=== PATIENT | male | born 1935 | race Caucasian/White ===

== ENCOUNTER 2018-05-05 13:49 | Emergency (ER) | payer OTHER, MEDICARE ==
--- NOTE | 2018-05-05 15:00 | ER Document Report ---
ED Extremity Problem, Lower - General Chief Complaint: Knee Pain Stated Complaint: KNEE PAIN Time Seen by Provider: 05/05/18 14:44 [facility]: [facility] [[facility]] - Follow up as needed Mode of Arrival: Wheelchair Information source: Patient Notes: 82-year-old male presents to ED for complaint of left knee pain since Saturday. He states he was trying to get up from the chair when he heard a very loud crack that can be heard throughout the house. He states he had a lot of pain in this knee since then. He states he thought he could just get over it but the pain has continued. says he hobbles around because of the pain. Patient is alert oriented respirations regular and unlabored speaking in full sentences patient is able to stand on the leg but with pain to the knee. TRAVEL OUTSIDE OF THE [place] IN LAST 30 DAYS: No - HPI Patient complains to provider of: Injury, Pain - Left, Swelling Location: Knee Occurred: Other - Saturday Where: Home, Indoors Onset/Duration: Persistent, Better Severity: Severe Pain Level: 5 Context: Twisted Recent injury: Possibly Associated symptoms: Grant a crack Exacerbated by: Hanging down, Movement, Walking Relieved by: Nothing - Related Data Allergies/Adverse Reactions: No Known Allergies Allergy (Verified 05/05/18 13:56) Past Medical History - General Information source: Patient, Relative - - Social History Smoking Status: Former Smoker Cigarette use (# per day): No Frequency of alcohol use: None Drug Abuse: None Lives with: Family Family History: Reviewed & Not Pertinent Patient has suicidal ideation: No Patient has homicidal ideation: No - Past Medical History Cardiac Medical History: Reports: Hx Atrial Fibrillation, Hx Congestive Heart Failure, Hx Coronary Artery Disease, Hx Hypercholesterolemia, Hx Hypertension Pulmonary Medical History: Reports: Hx COPD, Hx Pneumonia EENT Medical History: Reports: None Neurological Medical History: Reports: None Endocrine Medical History: Reports: None Renal/ Medical History: Reports: None Malignancy Medical History: Reports None GI Medical History: Reports: Hx Gastritis, Hx Gastroesophageal Reflux Disease Musculoskeletal Medical History: Reports Hx Arthritis, Reports Hx Musculoskeletal Deformity, Reports Hx Musculoskeletal Trauma Skin Medical History: Reports None Psychiatric Medical History: Reports: None Traumatic Medical History: Reports: None Infectious Medical History: Reports: None Past Surgical History: Reports: Hx Cardiac Catheterization, Hx Coronary Artery Bypass Graft, Hx Coronary Stent, Hx Pacemaker - Immunizations Immunizations up to date: Yes Hx Pneumococcal Vaccination: 03/11/05 Review of Systems - Review of Systems Constitutional: No symptoms reported EENT: No symptoms reported Cardiovascular: No symptoms reported Respiratory: No symptoms reported Gastrointestinal: No symptoms reported Genitourinary: No symptoms reported Male Genitourinary: No symptoms reported Musculoskeletal: Joint pain - left knee, Joint swelling Skin: No symptoms reported Hematologic/Lymphatic: No symptoms reported Neurological/Psychological: No symptoms reported -: Yes All other systems reviewed and negative Physical Exam - Vital signs Vitals: Temp Pulse Resp BP Pulse Ox 98.5 F 60 18 115/69 98 05/05/18 14:07 05/05/18 14:07 05/05/18 14:07 05/05/18 14:07 05/05/18 14:07 Interpretation: Normal - General General appearance: Appears well, Alert - HEENT Head: Normocephalic, Atraumatic Eyes: Normal Pupils: PERRL - Respiratory Respiratory status: No respiratory distress Chest status: Nontender Breath sounds: Normal Chest palpation: Normal - Cardiovascular Rhythm: Regular Heart sounds: Normal auscultation Murmur: No - Abdominal Inspection: Normal Distension: No distension Bowel sounds: Normal Tenderness: Nontender Organomegaly: No organomegaly - Back Back: Normal, Nontender - Extremities General upper extremity: Normal inspection, Nontender, Normal color, Normal ROM, Normal temperature General lower extremity: Normal color, Normal temperature, Normal weight bearing. No: Renu's sign Knee: Tender, Pain with ROM, Patellar tendon intact, Tender joint line. No: Abrasion, Deformity, Dislocation, Drawer's test instability, Ecchymosis, Instability, Joint effusion, Laceration, Laxity with valgus stress, Laxity with varus stress, Popliteal fossa tender, Unable to bear weight - Neurological Neuro grossly intact: Yes Cognition: Normal Orientation: AAOx4 Charlene Coma Scale Eye Opening: Spontaneous [place] Coma Scale Verbal: Oriented Charlene Coma Scale Motor: Obeys Commands [place] Coma Scale Total: 15 Speech: Normal Motor strength normal: LUE, RUE, LLE, RLE Sensory: Normal - Psychological Associated symptoms: Normal affect, Normal mood - Skin Skin Temperature: Warm Skin Moisture: Dry Skin Color: Normal Course - Re-evaluation Re-evalutation: 05/05/18 21:[address] Becker before discharge and patient. I reviewed the exam history and x-rays with Dr. Becker. She should be sure to have compression elevation and ice orders given to the patient. Patient has a compression brace on his knee at this time he is able to walk on his knee and a written report of the x- rays given to patient to follow-up with his primary doctor and orthopedics. Patient was discharged home. - Vital Signs Vital signs: Temp Pulse Resp BP Pulse Ox 98.3 F 59 L 22 H 128/70 H 96 05/05/18 16:15 05/05/18 16:15 05/05/18 16:15 05/05/18 16:15 05/05/18 16:15 - Diagnostic Test Radiology reviewed: Image reviewed, Reports reviewed Discharge - Discharge Clinical Impression: Left knee pain Qualifiers: Chronicity: unspecified Qualified Code(s): M25.562 - Pain in left knee Condition: Stable Disposition: HOME, SELF-CARE Additional Instructions: You were seen today for pain to your left knee. Your knee x-ray shows multiple chronic problems but no fractures or dislocations Knee Effusion You have a fluid collection in the knee joint, called an effusion. This fluid build up can occur from irritation of the synovial membrane lining the knee joint or from a more serious injury to the knee. Irritation of the membra ne can occur from excessive, repetitive knee activitiy, like kneeling or squatting for extended periods or even just excessive walking, jogging, or skiing. Effusions also can occur with infections in the joint and with some arthritic conditions, especially gout. Fluid collections in these situations are usually yellow in color and either clear or cloudy in appearance. Significant injury to the knee can result in fluid collection which is partly or entirely blood and this condition is known as a hemarthrosis of the knee joint. If the fluid collection is not too large and/or painful, it can be managed conservatively with rest, ice packs, and anti-inflammatory and pain medications as needed. If the fluid collection is large and very painful, the knee joint can be drained (aspirated) by a relatively minor procedure of inserting a needle in the joint and removing some or all of the fluid present. If your knee was aspirated, you should rest it as much as possible for a few days, keep a pressure dressing around the knee and apply ice packs for at least 48 - 72 hours. If there are signs of developing infection such as heat and redness of the knee, fever, etc. you should return immediately for a recheck. Knee Exercise Program It's important to strengthen the muscles around the knee. This protects the injured area and stabilizes a knee that's been loosened by ligament injury. EARLY - Even when motion of the knee is painful (even when wearing a splint), you can begin isometric "quads" exercises. While sitting, hold the knee out, and contract the muscles to stiffen it. It shouldn't be straightened all the way -- stiffen it in a slightly-bent position. Lift the leg and draw a "T" with your foot, up to 100 times. When it becomes easy, add a weight on your foot. You have been sent home with a CD for your x-ray to follow-up with the [place] [facility]. FOLLOW-UP CARE: If you have been referred to a physician for follow-up care, call the physici ans office for an appointment as you were instructed or within the next two days. If you experience worsening or a significant change in your symptoms, notify the physician immediately or return to the Emergency Department at any time for re-evaluation. Referrals: [facility] [Primary [facility]] - Follow up as needed
--- NOTE | 2018-05-05 15:36 | RADIOLOGY REPORT (SQ) ---
EXAM DESCRIPTION: KNEE LEFT 4 VIEW COMPLETED DATE/TIME: 05/05/2018 3:16 pm REASON FOR STUDY: heard a crack when standing up on saturday COMPARISON: None. NUMBER OF VIEWS: Four views. TECHNIQUE: AP, lateral, and both oblique radiographic images acquired of the left knee. LIMITATIONS: None. FINDINGS: MINERALIZATION: Normal. BONES: No acute fracture or dislocation. A 2.0 cm broad-based exostosis posterolateral distal femora l condyle. A non-aggressive appearing mixed sclerotic--lucent lesion in the proximal fibula. Enthes iophyte at the quadriceps tendon insertion. JOINT: Mild narrowing of the medial and lateral compartments of the knee. Slight chondroid slight t o very mild chondrocalcinosis in the medial and lateral compartments of the knee. Suprapatellar effu kaylynn. SOFT TISSUES: Soft tissue vascular calcifications. No radio-opaque foreign body. OTHER: No other significant finding. IMPRESSION: 1. Suprapatellar effusion. 2. Mild narrowing of the medial and lateral compartments of the knee. Slight to very mild chondroca lcinosis. 3. No acute osseous findings. 4. Additional findings as above. TECHNICAL DOCUMENTATION: JOB ID: [id number] [employer]- All Rights Reserved Reading location - IP/workstation name: [email or web address]
[2018-05-05 16:17] VITALS: BP 128/70
== END 2018-05-05 16:16 | disposition home or self-care (01) ==
LOC: ER 13:49
DX: M25.562 Pain in left knee (principal); M79.89 Other specified soft tissue disorders; Z87.891 Personal history of nicotine dependence; I50.9 Heart failure, unspecified; I25.10 Atherosclerotic heart disease of native coronary artery without angina pectoris; I11.0 Hypertensive heart disease with heart failure; J44.9 Chronic obstructive pulmonary disease, unspecified
CPT/HCPCS: 99283